=== PATIENT | female | born 1945 | race Caucasian/White ===

== ENCOUNTER → 2017-06-19 | Outpatient (CLI) | payer OTHER ==
--- NOTE | 2017-06-19 13:56 | SWALLOWING EVALUATION ---
REFERRING SPEECH PATHOLOGIST: n/a HISTORY: This 72 year-old female was referred for a VFSS at [facility] in order to address c/o halitosis and globus sensation. The patient has a PMH significant for thyroid nodules, GERD (no medication since change in prescription coverage ~ a few months), and "severe" IBS. Currently the patient's diet level is regular. PROCEDURE: The patient was seen in the Radiology Department of [facility] for the VFSS. Cursory examination of the oral cavity revealed upper and lower dentures. Movement of the articulators was WNL. The patient was seated on a stool and was viewed in both the Anterior-Posterior (A-P) and Lateral planes. Volitional phonation exercises completed in the A-P plane revealed bilateral vocal fold movement and vocal intensity within functional limits. In the lateral plane, the patient was given the following boluses: 1 tsp. thin liquid barium x 2, single swallow thin liquid barium self-presented from a cup, sequential swallows of thin liquid barium self-presented from a cup, 1 tsp. nectar-thick liquid barium, single swallow nectar-thick liquid barium self-presented from a cup, 1 tsp. barium pudding, and 1 club cracker with barium pudding. The patient was then repositioned into the A-P plane and given the following boluses: 1 tsp. nectar-thick liquid barium and 1 tsp. barium pudding. RESULTS: Oral Stage: Labial seal, lingual control during oral bolus hold, mastication, lingual motion for bolus transport, and oral clearance WNL. Pharyngeal swallow initiated when the bolus was in the valleculae. Oral stage WNL. Pharyngeal Stage: Soft palate elevation, laryngeal elevation, anterior hyoid excursion, epiglottic inversion, laryngeal vestibular closure, pharyngeal stripping wave, pharyngeal contraction, distention and duration of PES opening, tongue base retraction, and pharyngeal clearance: WNL No penetration or aspiration during the study. Pharyngeal stage WNL. Esophageal Stage: No bolus retention as a pudding bolus transited the esophagus. SUMMARY/RECOMMENDATIONS: This patient presents with normal oral-pharyngeal swallow function. The following is recommended: 1. Regular diet as tolerated 2. Continue f/u with gastroenterology and otolaryngology as needed. A summary of the results and recommendations was discussed with the patient immediately following the study. She verbalized understanding. Thank you for referral of this patient. Please contact me at if any additional information is needed.
--- NOTE | 2017-06-19 14:24 | DIAGNOSTIC IMAGING REPORT ---
VIDEO SWALLOW HISTORY: DYSPHAGIA,? ASPIRATION TECHNIQUE: Video fluoroscopic evaluation of swallowing was performed in the AP and lateral projections by the speech pathology staff. The patient is fed nectar-thick and thin liquid barium, a barium coated wafer, and barium pudding. FLUOROSCOPY TIME: 1.4 minutes. NUMBER OF FLUOROSCOPY IMAGES: 0 COMPARISON STUDY: None. FINDINGS: There is normal hyoid excursion and epiglottic deflection. No significant penetration or aspiration identified. Swallowing function is within normal limits. IMPRESSION: 1. No aspiration identified. 2. Please see the speech pathologist report for detailed findings and recommendations. Electronically signed by: Mirza Floyd M.D. 06/19/2017 2:22 PM Dictated Date/Time: 06/19/2017 2:21 PM
== END | disposition home or self-care (01) ==
LOC: C.RAD 12:42
PROVIDERS: ATTEND Internal Medicine
DX: R13.10 Dysphagia, unspecified (principal)